=== PATIENT | male | born 1990 | race Caucasian/White ===

== ENCOUNTER 2020-05-03 08:57 | Emergency (ER) | payer BC ==
[~2020-05-03] VITALS: Ht 180.3 cm; Wt 81.2 kg
--- NOTE | 2020-05-03 08:57 | NUR ---
Patient BIBA ALS, transferred to bed 7. RN evaluating the patient at bedside.
--- NOTE | 2020-05-03 08:58 | NUR ---
SEIZURE PADS IN PLACE
[2020-05-03 09:00] VITALS: BP 121/46
--- NOTE | 2020-05-03 09:05 | NUR ---
29 Y/O M BIBA C/O SEIZURES. PER EMS, TONIC CLONIC SEIZURE X 1 WITNESSED BY MOM THAT LASTED 30 SECONDS. EMS ACCUCHEK 178. PT STATES HE HAS NEVER HAD A SEIZURE PRIOR TO TODAY. NO HEAD/ORAL TRAUMA, INCONTENIENCE NOTED. PT STATES ON 05/02, HE CONSUMED VODKA X 10 SHOTS, AND BEER X 2. PT PLACED ONTO GREETING CARD MAKER/PULSE OX. BED LOCKED IN LOWEST POSITION, SIDE RAILS X 2. CALL LIGHT IN REACH. PM: YENNY ELLINGTON MEDS: YENNY Addendum: 05/03/20 at 1005 by [facility] 29 Y/O M BIBA C/O SEIZURES. PER EMS, TONIC CLONIC SEIZURE X 1 WITNESSED BY MOM THAT LASTED 30 SECONDS. A&O X1. EMS ACCUCHEK 178. PT STATES HE HAS NEVER HAD A SEIZURE PRIOR TO TODAY. NO HEAD/ORAL TRAUMA, INCONTENIENCE NOTED. PT STATES ON 05/02, HE CONSUMED VODKA X 10 SHOTS, AND BEER X 2. PT PLACED ONTO GREETING CARD MAKER/PULSE OX. BED LOCKED IN LOWEST POSITION, SIDE RAILS X 2. CALL LIGHT IN REACH. PMH: YENNY ELLINGTON MEDS: YENNY
[2020-05-03] MEDS ORDERED: NACL 0.9% 1,000 ML IV ONE (09:10)
--- NOTE | 2020-05-03 09:15 | NUR ---
Dr. Woodruff is evaluating the patient at bedside.
--- NOTE | 2020-05-03 09:19 | NUR ---
[facility] in [facility] - 05/03/[address] AT BEDSIDE
--- NOTE | 2020-05-03 09:19 | NUR ---
Pt taken to CT via rroxy.
--- NOTE | 2020-05-03 09:20 | NUR ---
[facility] in [facility] - 05/03/20 at 0923 by NAMITA PT TAKEN TO CT VIA BOOM
--- NOTE | 2020-05-03 09:26 | NUR ---
LAB AT BEDSIDE
--- NOTE | 2020-05-03 09:28 | NUR ---
PT RETURNED FROM CT VIA GURNEY. PT PLACED BACK ONTO TAX COLLECTION COORDINATOR. BED LOCKED IN LOWEST POSITION, SIDE RAILS X2, CALL LIGHT IN REACH
[2020-05-03 09:43] LABS: BASOPHILS % (AUTO) 0.2 % (0.0-2.0); EOSINOPHILS % (AUTO) 0.5 % (0.0-4.0); HEMATOCRIT 45.4 % (36-52); HEMOGLOBIN 15.1 g/dL (12.0-18.0); LYMPHOCYTES # (AUTO) 0.9 K/uL (2.0-11.5); LYMPHOCYTES % (AUTO) 14.9 % (20.5-51.1); MEAN CORPUSCULAR HEMOGLOBIN 32 pg (27-31); MEAN CORPUSCULAR HGB CONC 33 g/dL (33-37); MEAN CORPUSCULAR VOLUME 95.4 fL (80-94); MONOCYTES # (AUTO) 0.3 K/uL (0.8-1.0); MONOCYTES % (AUTO) 4.5 % (1.7-9.3); NEUTROPHILS % (AUTO) 79.9 % (42.2-75.2); PLATELET COUNT (AUTO) 175 K/uL (140-450); RED BLOOD CELL COUNT(AUTO) 4.76 MIL/uL (4.20-6.10); RED CELL DISTRIBUTION WIDTH 12.9 % (11.6-13.7); WHITE BLOOD COUNT (AUTO) 6.2 K/uL (4.8-10.8)
--- NOTE | 2020-05-03 09:45 | NUR ---
URINE SAMPLE COLLECTED, WALKED TO LAB AND LEFT WITH HOPE MCCABE
--- NOTE | 2020-05-03 09:49 | NUR ---
EKG AT BEDSIDE
--- NOTE | 2020-05-03 09:51 | NUR ---
OBTAINED PERMISSION FROM PT TO GIVE UPDATE TO FATHER IN LOBBY. GLO CARMONA (FATHER) [phone]
--- NOTE | 2020-05-03 10:05 | NUR ---
PT NOW PRESENTS A&OX4
[2020-05-03 10:12] LABS: ALBUMIN 4.9 g/dL (3.4-5.0); ANION GAP 18.8 (8-16); ASPARTATE AMINOTRANSFERASE 23 U/L (15-37); CARBON DIOXIDE 20.7 mmol/L (21-32); CHLORIDE 99 mmol/L (98-107); CREATININE 1.4 mg/dL (0.6-1.3); GFR ARICAN-AMERICAN 78 mL/min (>90); GLUCOSE 142 mg/dL (74-106); POTASSIUM 4.5 mmol/L (3.5-5.1); SODIUM SERUM 134 mmol/L (136-145); TOTAL BILIRUBIN 0.4 mg/dL (0.0-1.0); UREA NITROGEN, BLOOD 26 mg/dL (7-18)
[2020-05-03 10:16] LABS: ACETAMINOPHEN < 0.5 ug/ml (10-30); SALICYLATE < 2.8 mg/dL (2.8-20.0)
[2020-05-03 10:39] LABS: BARBITURATE, URINE NEGATIVE ng/ml (NEG <=200); BENZODIAZEPINE, URINE NEGATIVE ng/mL (NEG <=200); CANNABINOID, URINE NEGATIVE ng/mL (NEG <=50); COCAINE, URINE NEGATIVE ng/mL (NEG <=300); OPIATE, URINE NEGATIVE ng/mL (NEG <=2000); PHENCYCLIDINE SCREEN,URINE NEGATIVE ng/mL (NEG <=25)
--- NOTE | 2020-05-03 10:55 | NUR ---
PT VERBALIZED HE HAS A RIDE HOME PRIOR TO D/C
[2020-05-03 11:01] VITALS: BP 120/56
--- NOTE | 2020-05-03 11:01 | NUR ---
Patient discharged with v/s stable. Written and verbal after care instructions given and explained. Patient verbalized understanding. Ambulatory with steady gait. All questions addressed prior to discharge. Advised to follow up with PMD.
== END 2020-05-03 11:01 | disposition home or self-care (01) ==
LOC: EDSEX 08:57 → MED 08:57
DX: R56.9 Unspecified convulsions (principal); R03.0 Elevated blood-pressure reading, without diagnosis of hypertension
CPT/HCPCS: 36415; 70450; 80053; 80305; 81002; 85025; 93005; 96360; 99285; G0480; G0482; J7030

== ENCOUNTER 2021-02-18 05:49 | Emergency (ER) | payer BC ==
[~2021-02-18] VITALS: Ht 180.3 cm; Wt 72.6 kg
[2021-02-18 06:01] VITALS: BP 121/83
--- NOTE | 2021-02-18 06:01 | NUR ---
TO BED AMBULATORY
--- NOTE | 2021-02-18 06:05 | NUR ---
30 YO M BIB SELF FOR C/O SZR X 2 HOURS AGO. WITNESSED BY ROOMMATE. PT STATES HE SAW A NEUROLOGIST @ [place] X 1 YEAR AGO AND RECEIVED RX FOR KEPPRA THAT HE HAS NOT TAKEN. DENIES LIGHTHEADEDNESS, VISUAL CHANGES. NO WEAKNESS NOTED. SEIZURE PRECAUTIONS IN PLACE. CALL LIGHT WITHIN REACH. RX: DENIES HX: SEIZURES NKA
--- NOTE | 2021-02-18 06:50 | NUR ---
PT TAKEN TO CT
[2021-02-18 07:15] LABS: BASOPHILS % (AUTO) 0.4 % (0.0-2.0); EOSINOPHILS # (AUTO) 0.2 K/uL (0-0.4); EOSINOPHILS % (AUTO) 3.7 % (0.0-4.0); HEMATOCRIT 44.8 % (36-52); LYMPHOCYTES # (AUTO) 1.1 K/uL (2.0-11.5); LYMPHOCYTES % (AUTO) 19.1 % (20.5-51.1); MEAN CORPUSCULAR HEMOGLOBIN 32 pg (27-31); MEAN CORPUSCULAR HGB CONC 34 g/dL (33-37); MEAN CORPUSCULAR VOLUME 94.1 fL (80-94); MONOCYTES # (AUTO) 0.5 K/uL (0.8-1.0); MONOCYTES % (AUTO) 8.2 % (1.7-9.3); NEUTROPHILS # (AUTO) 4.1 K/uL (1.8-7.7); NEUTROPHILS % (AUTO) 68.6 % (42.2-75.2); PLATELET COUNT (AUTO) 184 K/uL (140-450); RED BLOOD CELL COUNT(AUTO) 4.76 MIL/uL (4.20-6.10); RED CELL DISTRIBUTION WIDTH 13.6 % (11.6-13.7)
--- NOTE | 2021-02-18 07:16 | NUR ---
REPORT GIVEN TO DAY SHIFT FOR CONTINUITY OF CARE
--- NOTE | 2021-02-18 07:16 | NUR ---
REPORT RECEIVED FROM ASHIA DRAPER FOR CONTINUITY OF CARE
[2021-02-18 07:26] LABS: CARBON DIOXIDE 29.8 mmol/L (21-32); POTASSIUM 4.8 mmol/L (3.5-5.1)
[2021-02-18 08:26] VITALS: BP 116/71
--- NOTE | 2021-02-18 08:26 | NUR ---
Patient discharged with v/s stable. Written and verbal after care instructions given and explained. Patient alert, oriented and verbalized understanding of instructions. Ambulatory with steady gait. All questions addressed prior to discharge. ID band removed. Patient advised to follow up with PMD. Opportunity to ask questions provided and answered.
== END 2021-02-18 08:26 | disposition home or self-care (01) ==
LOC: MED 05:49
DX: R56.9 Unspecified convulsions (principal); Z79.899 Other long term (current) drug therapy
CPT/HCPCS: 36415; 70450; 71045; 80048; 85025; 93005; 99291; Q0092

== ENCOUNTER 2021-06-11 08:12 | Emergency (ER) | payer BC ==
[~2021-06-11] VITALS: Ht 182.9 cm; Wt 80.7 kg
[2021-06-11 08:23] VITALS: BP 134/73
[2021-06-11] MEDS ORDERED: LORazepam 2 MG/ML VIAL IVP ONE (08:45)
[2021-06-11] MEDS ORDERED: levETIRAcetam 500 MG in NACL 0.9% 100 ML IV ONE (09:00)
--- NOTE | 2021-06-11 09:00 | NUR ---
25 Y/O MALE BIB PARTNER FOR POSS SEIZURE ACTIVITY LAST NIGHT. AOX4, ABLE TO MAKE NEEDS KNOWN. RESP EVEN AND UNLABORED ON RA. SEIZURE PRECAUTIONS IN PLACE. DENIES ANY VISION CHANGES. ABD SOFT AND NON-TENDER. DENIES N/V/D AT THIS TIME. PT DOES NOT FEEL IF HE HAD A SEIZURE AND WOULD LIKE TO COME IN FOR A CHECK UP. PMHX: SEIZURES(UNKNOWN ORIGEN) HOME MEDS: KEPPRA ALLERGIES: DENIES
[2021-06-11] MEDS ORDERED: levETIRAcetam 100 MG/ML VIAL IV ONE (09:03)
[2021-06-11 10:45] VITALS: BP 104/56
--- NOTE | 2021-06-12 13:45 | NUR ---
LATE ENTRY- LOLY DISCONTINUED AT 1046.
== END 2021-06-11 10:45 | disposition home or self-care (01) ==
LOC: MED 08:12
DX: R56.9 Unspecified convulsions (principal)
CPT/HCPCS: 96365; 96375; 99284; J1953; J2060